=== PATIENT | male | born 1945 | race African-American/Black ===

== ENCOUNTER → 2023-05-09 | Outpatient (CLI) | payer MEDICARE, OTHER ==
[2023-05-09 14:40] LABS: BASOPHILS % 0.3 % (0.0-2.0); EOSINOPHILS % 1.9 % (0.0-5.0); HEMATOCRIT. 35.5 % (42.0-52.0); HEMOGLOBIN. 11.6 g/dL (14.0-18.0); LYMPHOCYTES % 24.1 % (20.0-50.0); MEAN CORPUSCULAR HEMOGLOBIN 28.9 pg (28.0-32.0); MEAN CORPUSCULAR HGB CONC 32.7 g/dL (31.0-37.0); MEAN CORPUSCULAR VOLUME 88.3 fL (80.0-94.0); MEAN PLATELET VOLUME 8.4 fl (7.4-10.4); MONOCYTES % 13.2 % (2.0-8.0); NEUTROPHILS % 60.5 % (40.0-76.0); PLATELET 274 x1000/uL (130-400); RED BLOOD CELL COUNT 4.02 mill/uL (4.7-6.1); RED CELL DISTRIBUTION WIDTH 15.5 % (11.6-14.6); WHITE BLOOD COUNT 6.3 x1000/uL (4.5-11.0)
[2023-05-09 15:53] LABS: ALANINE AMINOTRANSFERASE 23 IU/L (10-49); ALBUMIN 3.5 g/dL (3.2-4.8); ASPARTATE AMINOTRANSFERASE 46 IU/L (<34); BILIRUBIN TOTAL 0.6 mg/dL (0.1-1.0); CALCIUM 8.5 mg/dL (8.7-10.4); CARBON DIOXIDE 31 mEq/L (21-32); CHLORIDE 97 mEq/L (98-107); CHOLESTEROL 112 mg/dL (<200); CREATINE KINASE 182 IU/L (46-171); CREATININE 0.7 mg/dL (0.6-1.3); GLUCOSE 78 mg/dL (70-105); HDL CHOLESTEROL 47 mg/dL (>55); LDL CHOLESTEROL 55 mg/dL (5-100); POTASSIUM 4.1 mEq/L (3.5-5.1); PROTEIN TOTAL 7.2 g/dL (6.0-8.3); SODIUM 134 mEq/L (136-145); T4 FREE 0.99 ng/dL (0.89-1.76); THYROID STIMULATING HORMONE 1.95 uIU/mL (0.55-4.78); TRIGLYCERIDE 55 mg/dL (0-150); UREA NITROGEN BLOOD 18 mg/dL (9-23)
[2023-05-11 10:07] LABS: QFT MITOGEN VALUE 1.48 IU/mL (.); QFT TB GOLD PLUS Negative (Negative); QFT TB1 AG VALUE 0.07 IU/mL (.); QFT TB2 AG VALUE 0.07 IU/mL (.)
[2023-05-11 13:10] LABS: THYROID PEROXIDASE ANTIBODY < 9 IU/mL (0-34); VITAMIN D 25-OH 13.7 ng/mL (30.0-100.0)
== END | disposition home or self-care (01) ==
LOC: LAB 13:28
DX: I11.9 Hypertensive heart disease without heart failure (principal); R42 Dizziness and giddiness; R51.9 Headache, unspecified; R60.9 Edema, unspecified; Z00.00 Encounter for general adult medical examination without abnormal findings; Z00.01 Encounter for general adult medical examination with abnormal findings
CPT/HCPCS: 36415; 80053; 80061; 82306; 82550; 83036; 84439; 84443; 84481; 85025; 85379; 86376; 86480

== ENCOUNTER 2024-10-17 11:26 | Emergency (ER) | payer MEDICARE, MEDICAID ==
[~2024-10-17] VITALS: Ht 175.3 cm; Wt 83.0 kg
[2024-10-17 11:38] VITALS: TEMP 36.9; O2SAT 96
[2024-10-17] MEDS ORDERED: CEPH500C2 MT (14:42)
[2024-10-17] MEDS ORDERED: SULF1TAB48 MT (14:42)
[2024-10-17 15:04] VITALS: BP 235/131; PULSE 91; RESP 12; O2SAT 99
[2024-10-17] MEDS: AMLODIPINE 10MG TABLET PO ONE (15:04)
== END 2024-10-17 15:05 | disposition home or self-care (01) ==
LOC: ER 11:26
DX: L03.119 Cellulitis of unspecified part of limb (principal); I10 Essential (primary) hypertension
CPT/HCPCS: 93005; 93970; 99284